=== PATIENT | male | born 1990 | race Caucasian/White ===

== ENCOUNTER → 2018-05-16 | Emergency (ER) | payer SELFPAY ==
[~2018-05-16] VITALS: Ht 180.3 cm; Wt 65.8 kg
[~2018-05-16] MED LIST: CEFADROXIL500 M1 PO; CLARITIN10 MG PO; IBU-8800 MG PO; KEFLEX500 MG PO; MEDROL DOSEPAK4 MG PO; MOTRIN800 MG PO; MYCOSTATIN100000 U/G TP; Motrin,Rufen800 MG PO; PREDNISONE10 MG PO; ZITHROMAX Z PA250 MG PO
== END ==
LOC: ED 23:32
DX: S61.213A Laceration without foreign body of left middle finger without damage to nail, initial encounter (principal); S61.215A Laceration without foreign body of left ring finger without damage to nail, initial encounter; S01.511A Laceration without foreign body of lip, initial encounter; S00.33XA Contusion of nose, initial encounter; S09.90XA Unspecified injury of head, initial encounter; F17.200 Nicotine dependence, unspecified, uncomplicated; Y04.2XXA Assault by strike against or bumped into by another person, initial encounter; Y93.89 Activity, other specified; Y92.89 Other specified places as the place of occurrence of the external cause; Y99.8 Other external cause status

== ENCOUNTER 2018-05-28 11:58 | Emergency (ER) | payer SELFPAY ==
[~2018-05-28] VITALS: Ht 180.3 cm; Wt 64.9 kg
== END 2018-05-28 12:26 | disposition home or self-care (01) ==
LOC: ED 11:58
DX: S01.511D Laceration without foreign body of lip, subsequent encounter (principal); S61.412D Laceration without foreign body of left hand, subsequent encounter; X58.XXXD Exposure to other specified factors, subsequent encounter

== ENCOUNTER 2018-07-23 20:55 | Emergency (ER) | payer SELFPAY ==
[~2018-07-23] VITALS: Ht 180.3 cm; Wt 59.0 kg
== END 2018-07-23 21:40 | disposition home or self-care (01) ==
LOC: ED 20:55
DX: S51.812A Laceration without foreign body of left forearm, initial encounter (principal); F17.200 Nicotine dependence, unspecified, uncomplicated; W25.XXXA Contact with sharp glass, initial encounter; Y93.89 Activity, other specified; Y92.89 Other specified places as the place of occurrence of the external cause; Y99.8 Other external cause status

== ENCOUNTER 2024-10-08 16:49 | Emergency (ER) | payer MEDICARE, MEDICAID ==
[~2024-10-08] VITALS: Ht 180.3 cm; Wt 67.1 kg
[2024-10-08] MEDS ORDERED: VIBRAMYCIN100 MG PO (17:15)
[2024-10-08] MEDS ORDERED: Doxycycline Hyclate 100 MG CAP PO ONE (17:15)
[2024-10-08 17:28] LABS: BILIRUBIN Negative (Negative); BLOOD Negative (Negative); CLARITY Clear (Clear); COLOR Yellow (Yellow); GLUCOSE Negative (Negative); KETONE Negative (Negative); LEUKO ESTERASE Negative (Negative); NITRITE Negative (Negative); SPECIFIC GRAVITY 1.015 (1.001-1.030)
[2024-10-08 17:42] LABS: BACTERIA TRACE; WBC 0-2 wbc/hpf (0-5)
== END 2024-10-08 17:37 | disposition home or self-care (01) ==
LOC: ED 16:49
PROVIDERS: Nurse Practitioner Family
DX: A64 Unspecified sexually transmitted disease (principal); F90.9 Attention-deficit hyperactivity disorder, unspecified type

== ENCOUNTER → 2024-10-20 | Outpatient (CLI) | payer MEDICARE, MEDICAID ==
[~2024-10-20] MED LIST changes: +VIBRAMYCIN100 MG PO
[2024-10-20 11:03] LABS: BASO # 0.1 10*3/uL (0.0-0.1); BASO % 0.8 % (0.0-1.0); EOS # 0.1 10*3/uL (0.0-0.4); EOS % 0.8 % (1.0-4.0); HEMATOCRIT 46.4 % (42.0-52.0); MEAN CELL VOLUME 91.7 fl (80.0-94.0); MEAN CORPUSCULAR HGB CONC 33.8 g/dl (33.0-37.0); MEAN PLATELET VOLUME 9.4 fl (9.6-12.3); MONO # 0.5 10*3/uL (0.1-1.0); NEUT # 3.9 10*3/uL (2.3-7.9); PLATELET COUNT AUTOMATED 270 10*3/uL (130-400); RED BLOOD COUNT 5.06 10*6/uL (4.50-5.90); RED CELL DISTRI WIDTH 12.7 % (0-14.5); WHITE BLOOD COUNT 6.6 10*3/uL (4.8-10.8)
[2024-10-20 11:33] LABS: ALKALINE PHOSPHATASE 55 U/L (46-116); BUN 7 mg/dl (9-23); CHLORIDE 106 mmol/L (98-107); CHOLESTEROL 147 mg/dL (<200); LDL CHOLESTEROL 77 mg/dL (9-159); SGPT/ALT 13 U/L (5-49); TOTAL PROTEIN 7.1 gm/dL (6.0-8.0); TRIGLYCERIDES 79 mg/dl (<150)
[2024-10-20 11:36] LABS: POTASSIUM 4.1 mmol/L (3.4-5.1)
== END | disposition home or self-care (01) ==
LOC: LAB 10:27
PROVIDERS: ATTEND Nurse Practitioner
DX: Z51.81 Encounter for therapeutic drug level monitoring (principal); F39 Unspecified mood [affective] disorder; Z79.899 Other long term (current) drug therapy

== ENCOUNTER 2025-06-23 04:05 | Emergency (ER) | payer MEDICARE, MEDICAID ==
[~2025-06-23] VITALS: Wt 72.6 kg
[2025-06-23 05:25] LABS: BUN 8 mg/dl (9-23); CPK 134 U/L (34-171); ETHYL ALCOHOL 185.8 mg/dl (<3)
[2025-06-23 06:04] LABS: BASO # 0.1 10*3/uL (0.0-0.1); BASO % 0.6 % (0.0-1.0); EOS # 0.0 10*3/uL (0.0-0.4); EOS % 0.4 % (1.0-4.0); MEAN CELL VOLUME 88.7 fl (80.0-94.0); MEAN CORPUSCULAR HGB 30.7 pg (27.0-31.0); MEAN PLATELET VOLUME 8.8 fl (9.6-12.3); MONO # 0.6 10*3/uL (0.1-1.0); MONO % 6.7 % (3.0-9.0); NEUT # 5.8 10*3/uL (2.3-7.9); NEUT % 61.8 % (47.0-73.0); NUCLEATED RED BLOOD CELL 0.0 % (0.0-0.0); NUCLEATED RED BLOOD CELL 0.0 10*3/uL (0.0-0.0); PLATELET COUNT AUTOMATED 438 10*3/uL (130-400); RED CELL DISTRI WIDTH 12.5 % (0-14.5)
[2025-06-23 09:53] LABS: BILIRUBIN Negative (Negative); BLOOD Negative (Negative); CLARITY Clear (Clear); COLOR Yellow (Yellow); KETONE Trace (Negative); LEUKO ESTERASE Negative (Negative); NITRITE Negative (Negative); PH 5.5 (4.5-8.0); SPECIFIC GRAVITY 1.015 (1.001-1.030); UROBILINOGEN 0.2 E.U./dl (0.0-1.0)
[2025-06-23 10:00] LABS: URINE AMPHETAMINES Negative (1000ng/ml); URINE BARBITURATES Negative (200ng/ml); URINE BENZODIAZEPINES Negative (200ng/ml); URINE CANNABINOIDS (THC) Negative (50ng/ml); URINE COCAINE Negative (300ng/ml); URINE METHADONE Negative (300ng/ml); URINE OPIATES Negative (300ng/ml); URINE PHENCYCLIDINE Negative (25ng/ml)
[2025-06-23 10:14] LABS: RBC 0-2 rbc/hpf (0-2)
[2025-06-23 10:16] LABS: BACTERIA 1+; WBC 0-2 wbc/hpf (0-5)
[2025-06-23 10:17] LABS: YEAST TRACE
== END 2025-06-23 11:49 | disposition home or self-care (01) ==
LOC: ED 04:05
PROVIDERS: Emergency Medicine
DX: F43.21 Adjustment disorder with depressed mood (principal); F10.129 Alcohol abuse with intoxication, unspecified; F90.9 Attention-deficit hyperactivity disorder, unspecified type; Y90.9 Presence of alcohol in blood, level not specified